=== PATIENT | female | born 1935 ===

== ENCOUNTER 2018-03-26 09:04 | Emergency (ER) | payer MEDICARE ==
[2018-03-26 09:14] VITALS: BP 157/85
--- NOTE | 2018-03-26 09:48 | UC ---
Respiratory Complaint HPI - HPI Summary HPI Summary: 82 yo WF c/o cough with yellow sputum associated with worsening pleuritic CP with resolving flu-like sx x6 days. Denies f/c/SOB - History of Current Complaint Chief Complaint: UCRespiratory Stated Complaint: COUGH Time Seen by Provider: 03/26/18 09:21 Hx Obtained From: Patient Onset/Duration: Gradual Onset Timing: Constant Severity Initially: Moderate Severity Currently: Moderate Pain Intensity: 3 Character: Cough: Productive Aggravating Factors: Nothing Alleviating Factors: Nothing Associated Signs And Symptoms: Positive: Pleuritic Chest Pain - Allergies/Home Medications Allergies/Adverse Reactions: Allergies Allergy/AdvReac Type Severity Reaction Status Date / Time cephalexin [From Keflex] Allergy hive Verified 03/26/18 09:15 Penicillins Allergy Swelling Verified 03/26/18 09:15 Sulfa (Sulfonamide Allergy Rash Verified 03/26/18 09:15 Antibiotics) Home Medications: Home Medications Hydrocodone/Acetaminophen [Hydrocodone-Acetamin 5-325 mg] 1 mg PO DAILY [History Confirmed 03/26/18] Valsartan 80 mg PO DAILY 03/26/18 [History Confirmed 03/26/18] PMH/Surg Hx/FS Hx/Imm Hx - Surgical History Surgical History: Yes Surgery Procedure, Year, and Place: appy - Social History Alcohol Use: Occasionally Substance Use Type: None Smoking Status (MU): Never Smoked Tobacco Review of Systems All Other Systems Reviewed And Are Negative: Yes Constitutional: Positive: Chills, Fatigue Skin: Positive: Negative Eyes: Positive: Negative ENT: Positive: Negative Respiratory: Positive: Cough Cardiovascular: Positive: Negative Gastrointestinal: Positive: Negative Genitourinary: Positive: Negative Musculoskeletal: Positive: Negative Neurological: Positive: Negative Psychological: Positive: Negative Physical Exam - Summary Physical Exam Summary: Vital Signs Reviewed: Yes Skin: Positive: Warm Head/Face: Positive: Normal Head/Face Inspection Eyes: Positive: Normal ENT: Positive: Normal ENT inspection Neck: Positive: Supple Respiratory/Lung Sounds: Positive: diffuse rhonchi with cough, NEG crackles Cardiovascular: Positive: Normal, RRR, S1, S2 Abdomen Description: Positive: Nontender Musculoskeletal: Positive: Normal Neurological: Positive: Normal Psychiatric: Positive: Normal, Affect/Mood Appropriate Triage Information Reviewed: Yes Vital Signs: Initial Vital Signs Temp 36.6 C 03/26/18 09:08 Pulse 88 03/26/18 09:08 Resp 18 03/26/18 09:08 BP 157/85 03/26/18 09:08 Pulse Ox 99 03/26/18 09:08 Diagnostic Evaluation - Laboratory O2 Sat by Pulse Oximetry: 99 Respiratory Course/Dx - Differential Dx/Diagnosis Provider Diagnosis: Bronchitis Discharge - Sign-Out/Discharge Documenting (check all that apply): Patient Departure All imaging exams completed and their final reports reviewed: No Studies - Discharge Plan Condition: Stable Disposition: HOME Prescriptions: Azithromyxin FLORENTINO (NF) [Z-Florentino (Zithromax) 250 mg tabs #6] 2 tab PO .TODAY, THEN 1 DAILY #6 tab Patient Education Materials: Acute Bronchitis (ED) Referrals: Nilda Kinney MD [Primary Care Provider] - - Billing Disposition and Condition Condition: STABLE Disposition: Home
== END 2018-03-26 09:49 | disposition home or self-care (01) ==
LOC: UCEAST 09:04
DX: J40 Bronchitis, not specified as acute or chronic (principal); Z88.1 Allergy status to other antibiotic agents; Z88.0 Allergy status to penicillin; Z88.2 Allergy status to sulfonamides
CPT/HCPCS: 99202; G0463

== ENCOUNTER 2024-05-02 10:01 | Inpatient (IN) ==
[2024-05-02 10:43] LABS: ABS Basophils 0.1 10^3/uL (0.0-0.1); ABS Eosinophils 0.1 10^3/uL (0.0-0.5); ABS Lymphocytes 1.7 10^3/uL (1.0-4.8); ABS Monocytes 0.6 10^3/uL (0.0-0.9); ABS Neutrophils 3.4 10^3/uL (1.5-7.6); ABS Nucleated RBC 0.02 10^3/ul; Eosinophil % 2.4 %; Hematocrit 42.6 % (35-45); Hemoglobin 14.6 g/dL (11.5-14.3); Lymphocyte % 28.9 %; Mean Corpuscular Hemoglobin 32.6 pg (27-33); Mean Corpuscular Hgb Conc 34.2 g/dL (31-36); Mean Corpuscular Volume 95.4 fL (80-97); Mean Platelet Volume 9.6 fL (7.5-11.2); Nucleated Red Blood Cells % 0.3 %/100WBC (0.0-0.8); Platelet Count 250 10^3/uL (150-450); Red Blood Count 4.46 10^6/uL (3.63-4.92); Red Cell Distribution Width 12.9 % (12-17)
[2024-05-02 10:48] LABS: INR 0.99 (0.85-1.14)
[2024-05-02 11:14] LABS: Albumin 4.1 g/dL (3.5-5.7); Albumin/Globulin Ratio 1.4 (1-3); Creatinine, Serum 0.68 mg/dL (0.51-0.95); Potassium 4.4 mmol/L (3.5-5.0); Total Bilirubin 0.6 mg/dL (0.2-1.0); Total Protein 7.1 g/dL (6.4-8.9); eGFR CKD-EPI 84.8 (>60)
[2024-05-02 12:11] LABS: High Sensitivity Troponin 1 Hr 259 pg/mL (<15)
[2024-05-02] MEDS: Iohexol 350 (CONTRAST) 500 ML MDV IV ONE (12:24)
[2024-05-02 15:02] LABS: HDL Cholesterol 70.7 mg/dL
[2024-05-02] MEDS: Metoprolol Tartrate 5 mg VIAL 5 ml VIAL (1 mg/ml) IV ONE (15:02)
[2024-05-02] MEDS ORDERED: Ondansetron 4 mg VIAL 2 MG/ML 2 ml VIAL IV PRN (16:11)
[2024-05-02] MEDS ORDERED: hydrALAZINE 20 mg/ml 1 ML Vial IV IV SLOW PU PRN (16:14)
[2024-05-02] MEDS ORDERED: Sulfur Hexaflouride MICROSPHR 25 MG VIAL IV PRN (16:20)
[2024-05-02] MEDS: Enoxaparin 40 MG/0.4 ML SYR SUBCUT SCH (16:31)
[2024-05-02 18:44] LABS: High Sensitivity Troponin 1 Hr 509 pg/mL (<15)
[2024-05-02 21:59] LABS: High Sensitivity Troponin 3 Hr 610 pg/mL (<15)
[2024-05-02 22:56] LABS: ABS Basophils 0.1 10^3/uL (0.0-0.1); ABS Eosinophils 0.2 10^3/uL (0.0-0.5); ABS Lymphocytes 1.7 10^3/uL (1.0-4.8); ABS Monocytes 0.6 10^3/uL (0.0-0.9); ABS Neutrophils 3.9 10^3/uL (1.5-7.6); ABS Nucleated RBC 0.01 10^3/ul; Eosinophil % 2.5 %; Hematocrit 38.8 % (35-45); Hemoglobin 13.4 g/dL (11.5-14.3); Lymphocyte % 25.8 %; Mean Corpuscular Hemoglobin 32.8 pg (27-33); Mean Corpuscular Hgb Conc 34.5 g/dL (31-36); Mean Corpuscular Volume 95.2 fL (80-97); Mean Platelet Volume 9.3 fL (7.5-11.2); Nucleated Red Blood Cells % 0.1 %/100WBC (0.0-0.8); Platelet Count 241 10^3/uL (150-450); Red Blood Count 4.08 10^6/uL (3.63-4.92); Red Cell Distribution Width 13.2 % (12-17); White Blood Count 6.4 10^3/uL (3.8-11.8)
[2024-05-02 23:38] LABS: Creatinine, Serum 0.74 mg/dL (0.51-0.95); eGFR CKD-EPI 78.7 (>60)
[2024-05-02] MEDS: Heparin 5000 UNITS/ML 1 mL VIAL IV SCH (23:51)
[2024-05-02] MEDS: Heparin DRIP 25,000 UNITS BAG 25,000 UNITS/250 ML BAG IV SCH (23:56)
[2024-05-03 02:24] LABS: ABS Basophils 0.1 10^3/uL (0.0-0.1); ABS Eosinophils 0.2 10^3/uL (0.0-0.5); ABS Lymphocytes 2.2 10^3/uL (1.0-4.8); ABS Monocytes 0.6 10^3/uL (0.0-0.9); Eosinophil % 3.9 %; Hematocrit 38.4 % (35-45); Hemoglobin 13.2 g/dL (11.5-14.3); Lymphocyte % 36.3 %; Mean Corpuscular Hemoglobin 32.7 pg (27-33); Mean Corpuscular Hgb Conc 34.4 g/dL (31-36); Mean Platelet Volume 9.7 fL (7.5-11.2); Nucleated Red Blood Cells % 0.1 %/100WBC (0.0-0.8); Platelet Count 229 10^3/uL (150-450); Red Blood Count 4.04 10^6/uL (3.63-4.92); Red Cell Distribution Width 12.7 % (12-17); White Blood Count 6.1 10^3/uL (3.8-11.8)
[2024-05-03 02:37] LABS: High Sensitivity Troponin 1 Hr 723 pg/mL (<15)
[2024-05-03 03:06] LABS: Calcium 8.9 mg/dL (8.6-10.3); Creatinine, Serum 0.66 mg/dL (0.51-0.95); Phosphorus 3.6 mg/dL (2.5-5.0); Potassium 3.9 mmol/L (3.5-5.0); eGFR CKD-EPI 85.4 (>60)
[2024-05-03] MEDS: Aspirin EC 81 mg TAB.EC (enteric coated) PO SCH (08:42)
[2024-05-03] MEDS ORDERED: Aspirin EC 325 mg TAB.EC PO SCH (09:00)
[2024-05-03] MEDS ORDERED: Regadenoson 0.4 MG/5 ML SYRINGE ONE (10:57)
[2024-05-03] MEDS ORDERED: Aminophylline 25 MG/ML VIAL ONE (10:57)
[2024-05-03 13:11] LABS: TSH Ultra Thyroid Stim Horm 6.65 mcIU/mL (0.34-5.60)
[2024-05-03 13:22] LABS: Folate 16.44 ng/mL (5.90-24.80)
[2024-05-03 13:23] LABS: Vitamin B12 359 pg/mL (180-914)
[2024-05-03] MEDS: Potassium Chloride LIQUID 20 MEQ/15 ML LIQUID PO ONE (13:33)
[2024-05-03 13:40] LABS: Alcohol, S < 13 mg/dL (<13)
[2024-05-04 05:59] LABS: Calcium 8.5 mg/dL (8.6-10.3); Creatinine, Serum 0.61 mg/dL (0.51-0.95); Potassium 4.5 mmol/L (3.5-5.0)
[2024-05-04] MEDS: Multivitamins/Minerals TAB PO SCH (08:36)
[2024-05-04 10:38] VITALS: BP 124/50
[2024-05-04 11:15] LABS: High Sensitivity Troponin 1 Hr 322 pg/mL (<15)
== END 2024-05-04 13:38 | disposition home or self-care (01) | DRG 281 ==
LOC: ED 10:01 → EDHOLD 16:06 → MEDTELE 20:32
PROVIDERS: ADMIT Internal Medicine; ATTEND Internal Medicine